=== PATIENT | female | born 1955 | race Caucasian/White ===

== ENCOUNTER 2017-10-26 17:56 | Emergency (ER) | payer OTHER ==
[~2017-10-26] VITALS: Ht 157.5 cm; Wt 63.6 kg
[2017-10-26 17:59] VITALS: BP 186/102
[2017-10-26] MEDS ORDERED: HYDROcodone/acetaminophen 10/325mg tab PO ONE (18:35)
[2017-10-26] MEDS: morphine 4 MG/ML inj SYRINge IV ONE ×2 (18:57→19:00)
[2017-10-26] MEDS ORDERED: HYDR-565 PO (19:08)
== END 2017-10-26 19:50 | disposition home or self-care (01) ==
LOC: ER 17:57
DX: S82.891A Other fracture of right lower leg, initial encounter for closed fracture (principal); Z79.899 Other long term (current) drug therapy; W19.XXXA Unspecified fall, initial encounter; Y93.89 Activity, other specified; Y92.89 Other specified places as the place of occurrence of the external cause; Y99.8 Other external cause status
CPT/HCPCS: 29515; 99284; A6449; J2270

== ENCOUNTER 2017-11-01 08:45 | Outpatient (CLI) | payer OTHER ==
[~2017-11-01 08:45] MED LIST: HYDR-565 PO
[2017-12-12] MEDS ORDERED: ACET-2119 PO (11:02)
== END 2017-11-01 09:38 | disposition home or self-care (01) ==
LOC: ORTHO 08:45
PROVIDERS: ATTEND Nurse Practitioner Family
DX: S82.841A Displaced bimalleolar fracture of right lower leg, initial encounter for closed fracture (principal); I10 Essential (primary) hypertension; X58.XXXA Exposure to other specified factors, initial encounter; Y93.89 Activity, other specified; Y92.89 Other specified places as the place of occurrence of the external cause; Y99.8 Other external cause status
CPT/HCPCS: 99213

== ENCOUNTER 2017-11-08 10:45 | Outpatient (CLI) | payer OTHER ==
[2017-11-08 10:53] VITALS: BP 175/93
== END 2017-11-08 11:36 | disposition home or self-care (01) ==
LOC: ORTHO 10:45
PROVIDERS: ATTEND Nurse Practitioner Family
DX: S82.841G Displaced bimalleolar fracture of right lower leg, subsequent encounter for closed fracture with delayed healing (principal); I10 Essential (primary) hypertension; X58.XXXD Exposure to other specified factors, subsequent encounter
CPT/HCPCS: 99213

== ENCOUNTER 2017-11-15 10:44 | Outpatient (CLI) | payer OTHER | END 2017-11-15 11:48 | disposition home or self-care (01) | LOC: ORTHO 10:44 | PROVIDERS: ATTEND Nurse Practitioner Family | DX: S82.841G Displaced bimalleolar fracture of right lower leg, subsequent encounter for closed fracture with delayed healing (principal); I10 Essential (primary) hypertension; X58.XXXD Exposure to other specified factors, subsequent encounter | CPT/HCPCS: 99213 ==

== ENCOUNTER 2017-11-22 10:53 | Outpatient (CLI) | payer OTHER ==
[2017-11-22 11:09] VITALS: BP 187/88
== END 2017-11-22 14:43 | disposition home or self-care (01) ==
LOC: ORTHO 10:53
PROVIDERS: ATTEND Nurse Practitioner Family
DX: S82.841G Displaced bimalleolar fracture of right lower leg, subsequent encounter for closed fracture with delayed healing (principal); X58.XXXD Exposure to other specified factors, subsequent encounter
CPT/HCPCS: 73610; 99213

== ENCOUNTER 2017-12-14 10:58 | Day surgery (SDC) | payer OTHER ==
[2017-12-12 10:59] LABS: BASOPHILS % (AUTO) 0.4 % (0-1); EOSINOPHILS # (AUTO) 0.2 X10'3 (0-0.9); EOSINOPHILS % (AUTO) 2.9 % (0-6); LYMPHOCYTES # (AUTO) 1.9 X10'3 (1.1-4.8); LYMPHOCYTES % (AUTO) 28.7 % (21-51); MEAN CORPUSCULAR HEMOGLOBIN 33.1 PG (27.0-31.0); MEAN CORPUSCULAR HGB CONC 34.5 % (33.0-36.5); MEAN CORPUSCULAR VOLUME 96.1 FL (78-98); MEAN PLATELET VOLUME 9.1 FL (7.4-10.4); MONOCYTES # (AUTO) 0.4 X10'3 (0-0.9); MONOCYTES % (AUTO) 6.5 % (2-12); NEUTROPHILS # (AUTO) 4.1 X10'3 (1.8-7.7); NEUTROPHILS % (AUTO) 61.5 % (42-75); PRE OP HEMOGLOBIN 13.1 g/dL (12.0-16.0); PRE OP PLATELET COUNT 258 X10'3 (140-440); RED BLOOD COUNT 3.96 X10'6 (4.20-5.60); RED CELL DISTRIBUTION WIDTH 12.4 % (11.5-14.5)
[2017-12-12 11:16] LABS: ALBUMIN 3.8 G/DL (3.4-5.0); ALKALINE PHOSPHATASE 64 IU/L (46-116); BLOOD UREA NITROGEN 20 MG/DL (7-18); BUN/CREATININE RATIO 26.7 (6.6-38.0); CALCIUM 9.2 MG/DL (8.5-10.1); CHLORIDE 105 MMOL/L (99-107); CREATININE 0.75 MG/DL (0.40-0.90); PRE OP ALT 16 U/L (30-65); PRE OP ANION GAP 8 (8-16); PRE OP AST 11 U/L (10-37); PRE OP BILIRUB, TOTAL 0.3 MG/DL (0.0-1.0); PRE OP GLUCOSE 102 MG/DL (70-104); PRE OP POTASSIUM 3.9 MMOL/L (3.4-5.1); PRE OP SODIUM 141 MMOL/L (135-145); TOTAL CARBON DIOXIDE 27.9 MMOL/L (24-32); TOTAL PROTEIN 7.6 G/DL (6.4-8.2); eGFR 78 ML/MIN
[~2017-12-14] VITALS: Ht 154.9 cm; Wt 63.6 kg
[2017-12-14] VITALS (14 sets, daily range): BP systolic 157–192; BP diastolic 82–113
[~2017-12-14 10:58] MED LIST changes: +ACET-2119 PO; +Cefazolin 2GM/50ML dext iso,osmotic IVPB IV ONE; -HYDR-565 PO; +VANCOMYCIN INJ 1000 MG in NORMAL SALINE 250ml IV.SOLN IV ONE; +famotidine 20mg tablet PO ONE; +ringers solution, lacted 1,000 ML IV SCH
[2017-12-14] MEDS ORDERED: ROPIVAcaine 0.5% (5mg/ml) 30ml vial ONE (14:27)
[2017-12-14] MEDS ORDERED: cloNIDine hcl/PF 100mcg/ml inj ONE (14:28)
[2017-12-14] MEDS ORDERED: midazolam 2 mg/2 ml injection ONE (14:29)
[2017-12-14] MEDS ORDERED: propofol inj 20 ML IV ONE (14:29)
[2017-12-14] MEDS ORDERED: fentaNYL/PF 50MCG/1 ML 2ML syringe ONE ×2 (14:29→15:46)
[2017-12-14] MEDS ORDERED: sevoflurane 250ml liquid IH ONE (14:32)
[2017-12-14] MEDS ORDERED: BUPIVAcaine/PF 2.5mg/ml (0.25%) 10ml vial ONE (15:12)
[2017-12-14] MEDS ORDERED: ringers solution, lacted 1,000 ML IV SCH (15:32)
[2017-12-14] MEDS ORDERED: proCHLORperazine 10 MG/2 ml inj IV PRN (15:35)
[2017-12-14] MEDS ORDERED: meperidine/PF 25mg/ml syringe IV PRN ×3 (15:35)
[2017-12-14] MEDS ORDERED: morphine 4 MG/ML inj SYRINge IV PRN (15:35)
[2017-12-14] MEDS ORDERED: ondansetron/PF 4mg/2ml inj IV PRN (15:35)
[2017-12-14] MEDS ORDERED: dexamethasone sod phosphate 4mg/ml inj. ONE (16:30)
[2017-12-14] MEDS ORDERED: ondansetron/PF 4mg/2ml inj ONE (16:39)
[2017-12-14] MEDS: morphine 4 MG/ML inj SYRINge IV PRN ×2 (17:14→17:39)
== END 2017-12-14 19:01 | disposition home or self-care (01) ==
LOC: PAS 10:58
PROVIDERS: ATTEND Orthopaedic Surgery
DX: S82.841A Displaced bimalleolar fracture of right lower leg, initial encounter for closed fracture (principal); M81.0 Age-related osteoporosis without current pathological fracture; I10 Essential (primary) hypertension; Z79.891 Long term (current) use of opiate analgesic; Z98.890 Other specified postprocedural states; Z79.899 Other long term (current) drug therapy; X58.XXXA Exposure to other specified factors, initial encounter; Y93.89 Activity, other specified; Y92.89 Other specified places as the place of occurrence of the external cause; Y99.8 Other external cause status
CPT/HCPCS: 27814; 36415; 80053; 85025; 93005; A6449; C1713; J0690; J0735; J1100; J2175; J2250; J2270; J2405; J2704; J2795; J3010; J3370; J3490; J7120; A7000

== ENCOUNTER 2017-12-23 14:15 | Outpatient (CLI) | payer OTHER ==
[~2017-12-23 14:15] MED LIST changes: -Cefazolin 2GM/50ML dext iso,osmotic IVPB IV ONE; -VANCOMYCIN INJ 1000 MG in NORMAL SALINE 250ml IV.SOLN IV ONE; -famotidine 20mg tablet PO ONE; -ringers solution, lacted 1,000 ML IV SCH
[2017-12-23 14:32] VITALS: BP 174/93
[2017-12-23] MEDS ORDERED: LIDOcaine 2% 5ml jelly ONE (14:41)
== END 2017-12-23 15:15 | disposition home or self-care (01) ==
LOC: ORTHO 14:15
PROVIDERS: ATTEND Nurse Practitioner Family
DX: S82.841D Displaced bimalleolar fracture of right lower leg, subsequent encounter for closed fracture with routine healing (principal); M19.071 Primary osteoarthritis, right ankle and foot; M85.861 Other specified disorders of bone density and structure, right lower leg; M79.89 Other specified soft tissue disorders; W19.XXXD Unspecified fall, subsequent encounter
CPT/HCPCS: 73600; A6449; 99213

== ENCOUNTER 2018-01-06 08:35 | Outpatient (CLI) | payer OTHER ==
[2018-01-06 08:36] VITALS: BP 165/91
== END 2018-01-06 09:30 | disposition home or self-care (01) ==
LOC: ORTHO 08:35
PROVIDERS: ATTEND Nurse Practitioner Family
DX: S82.841G Displaced bimalleolar fracture of right lower leg, subsequent encounter for closed fracture with delayed healing (principal); M85.88 Other specified disorders of bone density and structure, other site; M79.89 Other specified soft tissue disorders; W19.XXXD Unspecified fall, subsequent encounter
CPT/HCPCS: 73610; 99213; A4590; A6449

== ENCOUNTER 2018-03-02 10:47 | Outpatient (CLI) | payer OTHER ==
[2018-03-02 10:47] VITALS: BP 163/87
== END 2018-03-02 11:21 | disposition home or self-care (01) ==
LOC: ORTHO 10:47
PROVIDERS: ATTEND Nurse Practitioner Family
DX: S82.841K Displaced bimalleolar fracture of right lower leg, subsequent encounter for closed fracture with nonunion (principal); M85.88 Other specified disorders of bone density and structure, other site; M25.471 Effusion, right ankle; W19.XXXD Unspecified fall, subsequent encounter
CPT/HCPCS: 73600; 99212

== ENCOUNTER 2018-03-29 09:57 | Outpatient (CLI) | payer OTHER ==
[2018-03-29 09:58] VITALS: BP 195/114
== END 2018-03-29 10:48 | disposition home or self-care (01) ==
LOC: ORTHO 09:57
PROVIDERS: ATTEND Nurse Practitioner Family
DX: S82.841K Displaced bimalleolar fracture of right lower leg, subsequent encounter for closed fracture with nonunion (principal); M85.88 Other specified disorders of bone density and structure, other site; M25.471 Effusion, right ankle; W19.XXXD Unspecified fall, subsequent encounter
CPT/HCPCS: 73600; 99213

== ENCOUNTER 2018-04-06 13:27 | Outpatient (CLI) | payer OTHER ==
[2018-04-06 13:35] VITALS: BP 170/102
== END 2018-04-06 14:00 | disposition home or self-care (01) ==
LOC: ORTHO 13:27
PROVIDERS: ATTEND Nurse Practitioner Family
DX: S82.841K Displaced bimalleolar fracture of right lower leg, subsequent encounter for closed fracture with nonunion (principal); I10 Essential (primary) hypertension; W19.XXXD Unspecified fall, subsequent encounter
CPT/HCPCS: 99213; A4590

== ENCOUNTER 2018-05-30 13:03 | Outpatient (CLI) | payer OTHER ==
[2018-05-30 13:04] VITALS: BP 152/80
== END 2018-05-30 13:48 | disposition home or self-care (01) ==
LOC: ORTHO 13:03
PROVIDERS: ATTEND Nurse Practitioner Family
DX: S82.841K Displaced bimalleolar fracture of right lower leg, subsequent encounter for closed fracture with nonunion (principal); M85.871 Other specified disorders of bone density and structure, right ankle and foot; M81.0 Age-related osteoporosis without current pathological fracture; X58.XXXD Exposure to other specified factors, subsequent encounter
CPT/HCPCS: 73600; 99213

== ENCOUNTER 2018-06-22 10:19 | Outpatient (CLI) | payer OTHER ==
[2018-06-22 10:05] VITALS: BP 163/94
== END 2018-06-22 10:51 | disposition home or self-care (01) ==
LOC: ORTHO 10:19
PROVIDERS: ATTEND Nurse Practitioner Family
DX: S82.841K Displaced bimalleolar fracture of right lower leg, subsequent encounter for closed fracture with nonunion (principal); M85.871 Other specified disorders of bone density and structure, right ankle and foot; I10 Essential (primary) hypertension; W19.XXXD Unspecified fall, subsequent encounter
CPT/HCPCS: 73600; 99213; A4590

== ENCOUNTER 2018-07-06 11:15 | Outpatient (CLI) | payer OTHER ==
[2018-07-06 11:30] VITALS: BP 166/83
== END 2018-07-06 12:16 | disposition home or self-care (01) ==
LOC: ORTHO 11:15
PROVIDERS: ATTEND Nurse Practitioner Family
DX: S82.841G Displaced bimalleolar fracture of right lower leg, subsequent encounter for closed fracture with delayed healing (principal); I10 Essential (primary) hypertension; W19.XXXD Unspecified fall, subsequent encounter
CPT/HCPCS: 73600; 99213

== ENCOUNTER 2018-08-03 11:34 | Outpatient (CLI) | payer OTHER ==
[2018-08-03 11:34] VITALS: BP 185/95
== END 2018-08-03 13:05 | disposition home or self-care (01) ==
LOC: ORTHO 11:34
PROVIDERS: ATTEND Nurse Practitioner Family
DX: S82.841G Displaced bimalleolar fracture of right lower leg, subsequent encounter for closed fracture with delayed healing (principal); M81.8 Other osteoporosis without current pathological fracture; I10 Essential (primary) hypertension; X58.XXXD Exposure to other specified factors, subsequent encounter
CPT/HCPCS: 73610; 99213